=== PATIENT | female | born 1955 | race American Indian/Alaskan Native ===

== ENCOUNTER 2023-01-17 11:53 | Emergency (ER) | payer OTHER, SELFPAY ==
[2023-01-17 12:00] VITALS: BP 149/70; PULSE 83; RESP 18; TEMP 36.7; O2SAT 99
--- NOTE | 2023-01-17 12:19 | DI.RAD.S_ITS ---
PROCEDURE: XR CHEST 2V INDICATIONS: cough x 2 weeks, weight loss TECHNIQUE: 2 views of the chest were acquired. COMPARISON: None. FINDINGS: Surgical changes and devices: None. Lungs and pleura: Mild patchy airspace opacity at the left lung base. No pleural effusions or pneumothorax. Mediastinum: Mediastinal contours are normal. Heart size is normal. Bones and chest wall: No suspicious bony abnormalities. Soft tissues appear unremarkable. IMPRESSION: Left lung base pneumonia. Continued plain film surveillance is recommended to ensure resolution, and to exclude underlying or central malignancy. Dictated by: Monica Kowalski M.D. on 01/17/2023 at 13:40 Approved by: Monica Kowalski M.D. on 01/17/2023 at 13:41
[2023-01-17 13:18] LABS: Adenovirus Not Detected (Not Detect); Coronavirus 229E Not Detected (Not Detect); Coronavirus HKU1 Not Detected (Not Detect); Coronavirus NL 63 Not Detected (Not Detect); Coronavirus OC43 Not Detected (Not Detect); Human Metapneumovirus Not Detected (Not Detect); Human Rhinovirus/Enterovirus Detected (Not Detect); SARS- CoV-2 Not Detected (Not Detecte)
[2023-01-17 13:19] LABS: B. parapertussis Not Detected (Not Detecte); Bordetella pertussis Not Detected (Not Detecte); Chlamydophila pneumoniae Not Detected (Not Detect); Influenza A Not Detected (Not Detect); Influenza B Not Detected (Not Detect); Mycoplasma pneumoniae Not Detected (Not Detect); Parainfluenza Virus 1 Not Detected (Not Detect); Parainfluenza Virus 2 Not Detected (Not Detect); Parainfluenza Virus 3 Not Detected (Not Detect); Parainfluenza Virus 4 Not Detected (Not Detect); Respiratory Syncytial Virus Not Detected (Not Detect)
== END 2023-01-17 14:40 | disposition left against medical advice (07) ==
PROVIDERS: Emergency Medicine; Emergency Provider Student in an Organized Health Care Education/Training Program; PCP Physician Assistant
DX: B34.8 Other viral infections of unspecified site (principal); R05.9 Cough, unspecified; R63.4 Abnormal weight loss; Z20.822 Contact with and (suspected) exposure to COVID-19
CPT/HCPCS: 71046; 87633

== ENCOUNTER 2023-01-17 19:29 | Emergency (ER) | payer OTHER, SELFPAY ==
[2023-01-17] VITALS (10 sets, daily range): BP systolic 123–163; BP diastolic 66–87; PULSE 70–90; RESP 14–18; TEMP 36.8; O2SAT 93–97; BMI 20.3
--- NOTE | 2023-01-17 19:56 | DI.CT.S_ITS ---
PROCEDURE: CT CHEST ABD PEL W CON INDICATIONS: LLL pneumonia, weight loss, unable to swallow solids. TECHNIQUE: After the administration of intravenous contrast, axial sections acquired from the supraclavicular neck to the pubic symphysis. Coronal and sagittal reformats were performed. For radiation dose reduction, the following was used: automated exposure control, adjustment of mA and/or kV according to patient size. COMPARISON: None. FINDINGS: Image quality: Excellent. CHEST: Lower Neck: No lymphadenopathy by size criteria. Thyroid: Visualized thyroid demonstrates no discrete nodules. Axillae: No lymphadenopathy by size criteria. Chest Wall: Unremarkable. Lungs and Airways: There are severe centrilobular emphysematous changes. Patchy areas of peribronchial consolidation are demonstrated within the left lower lobe as well as milder consolidation in the inferior right middle lobe. The trachea and central airways are patent. Pleura: No pneumothorax or pleural effusions. Heart: Heart size is normal. No pericardial effusion. Thoracic Vessels: The aorta and pulmonary arteries are normal in size. Mediastinum and Shirin: No lymphadenopathy by size criteria. Esophagus: No wall thickening. No hiatal hernia. ABDOMEN: Liver: No mass lesion. Gallbladder: Surgically absent. Biliary ducts: There is mild intra and extrahepatic biliary ductal dilatation extending to the ampulla. The common bile duct measures up to 0.8 cm. No calcified common duct stone or discrete obstructing mass visualized. Pancreas: No discrete pancreatic mass. There is mild dilatation of the pancreatic duct adjacent to the ampulla measuring up to 0.4 cm. Spleen: Normal in size. Adrenal Glands: There is an indeterminate left adrenal nodule measuring up to 2.4 cm. Kidneys and Ureters: No hydronephrosis. Stomach and Bowel: Stomach, small bowel loops, and colon are normal in caliber and wall thickness. No pericecal inflammatory changes to suggest appendicitis. There is colonic diverticulosis without acute diverticulitis. Peritoneum: No abnormal intraperitoneal fluid. No free air. Ventral Wall: No hernia. Abdominal Nodes: No retroperitoneal or mesenteric adenopathy by size criteria. Vessels: Aorta and inferior vena cava are normal in size. The aorta is ectatic, measuring up to 2.7 cm. PELVIS: Pelvic Organs: Unremarkable. Bladder: Unremarkable. Pelvic Nodes: No enlarged lymph nodes. Miscellaneous: No inguinal hernias are seen. Bones: Visualized osseous structures demonstrate no suspicious focal lesions. IMPRESSION: 1. Patchy areas of peribronchial consolidation in the left lower lobe and inferior right middle lobe consistent with pneumonia. 2. Severe centrilobular emphysematous changes. 3. Intra and extrahepatic biliary ductal dilatation without a calcified common duct stone or discrete obstructing mass visualized. The findings may reflect sequelae of prior cholecystectomy, ampullary stenosis, or a nonvisualized obstructing lesion. Recommend correlation clinically including with laboratory values. Further evaluation may be obtained with MRCP if indicated. Dictated by: Rafiq Sebastian M.D. on 01/17/2023 at 21:41 Approved by: Rafiq Sebastian M.D. on 01/17/2023 at 21:49
[2023-01-17 20:14] LABS: Add Manual Diff / Slide Review NO; Basophils Absolute Auto 100 /uL (0-100); Basophils Percent Auto 0.9 % (0-2); Eosinophils Absolute Auto 100 /uL (0-450); Eosinophils Percent Auto 0.9 % (2-4); Hematocrit 40.7 % (36-46); Lymphocytes Absolute Auto 1400 /uL (1100-4500); Lymphocytes Percent Auto 9.4 % (25-40); Mean Corpuscular HGB Conc 34.4 % (30-36); Mean Corpuscular Hemoglobin 31.6 PG (26-34); Mean Corpuscular Volume 91.8 fL (80-100); Monocytes Absolute Auto 1200 /uL (0-900); Monocytes Percent Auto 7.8 % (3-14); Neutrophils Absolute Auto 12200 /uL (1500-7000); Platelet Count 405 X10^3/uL (150-400); Red Blood Cell Count 4.44 X10^6/uL (4.0-5.2); Red Cell Distribution Width 13.4 % (11.6-14.8)
[2023-01-17] MEDS: SODIUM CHLORIDE 0.9% 1,000 ML 1000 ML IV (20:15)
[2023-01-17 20:24] LABS: INR 1.3 (0.9-1.3); Prothrombin Time 14.4 SECONDS (10.1-12.7)
[2023-01-17 20:28] LABS: Alanine Aminotransferase 17 IU/L (<35); Albumin 4.2 g/dL (3.5-5.0); Alkaline Phosphatase 75 U/L (38-126); Aspartate Aminotransferase 26 IU/L (14-36); BUN Creatinine Ratio 24.2 (6-22); Bilirubin Total 1.2 mg/dL (0.2-1.3); Blood Urea Nitrogen 15 mg/dL (7-17); Calcium 9.3 mg/dL (8.4-10.2); Carbon Dioxide 29 mmol/L (22-32); Chloride 98 mmol/L (98-107); Estimated Glomerular Filt Rate > 60 mL/min (>60); Globulin 4.2 g/dL (1.7-4.1); Glucose 121 mg/dL (80-110); HEMOLYSIS 35 (0-50); Lipase 113 U/L (23-300); Potassium 3.6 mmol/L (3.4-5.1); Sodium 135 mmol/L (137-145); Total Protein 8.4 g/dL (6.3-8.2)
--- NOTE | 2023-01-17 20:29 | ED.GENADULT ---
HPI - General Adult General Chief complaint: Upper Respiratory Symptoms Stated complaint: left and is back again wants to know about labs Time Seen by Provider: 01/17/23 19:34 Source: patient Mode of arrival: Ambulatory History of Present Illness HPI narrative: 67-year-old female smoker with history of COPD presents with her in the chief complaint of a harsh sounding cough that is productive of yellow sputum for the past 2 weeks or so. She denies runny nose or sore throat. She is had no fever or chills. She feels a bit fatigued but denies any significant shortness of breath. She denies nausea, vomiting or diarrhea. She states that she is had difficulty swallowing for almost her entire life and has had multiple esophageal procedures to help make this easier. That being said she still can not swallow pills and requires any antibiotics to be written as a liquid. She denies any recent travel, exposure to other ill persons or hospitalizations in the past many months. She denies any unexplained weight loss or change in bowel habits. She denies any new medications. Related Data Previous Rx's Medication Instructions Recorded amoxicillin 250 mg-potassium 10 ml PO TID 10 days #300 mL 01/17/23 clavulanate 62.5 mg/5 mL oral suspension (Augmentin) azithromycin 200 mg/5 mL oral See Rx Instructions PO .COMPLEX 01/17/23 suspension #30 mL Allergies Allergy/AdvReac Type Severity Reaction Status Date / Time codeine Allergy Intermediate Vomiting Verified 01/17/23 12:19 Review of Systems Review of Systems Narrative: GENERAL: Denies chills, fatigue, malaise, fever, sweats. HEENT: Denies sinus pain, ear pain, sore throat, difficulty swallowing, dizziness. RESPIRATORY: See HPI CARDIOVASCULAR: Denies chest pain, palpitations, orthopnea, edema, GASTROINTESTINAL: Denies nausea, vomiting, abdominal pain, diarrhea, constipation, melena. : Denies dysuria, frequency, incontinence, hematuria, urinary retention. MUSCULOSKELETAL: denies weakness, joint pain, or bony pain SKIN: Denies rash, skin lesions, or other NEUROLOGIC: Denies weakness, headache, numbness, change in speech, confusion, seizures, incoordination. PSYCHIATRIC: No concerning psychosocial issues. 12 point review of systems is negative except for those stated above Patient History Social History (Reviewed 01/18/23 @ 05:04 by MARY JANE Guzman Smoking Status: Current every day smoker Smoking Status: Current every day smoker tobacco type: cigarettes alcohol intake frequency: 0-2 drinks per day Substance Use Type: does not use Exam Narrative Exam Narrative: GENERAL: [67] year old patient appears stated age. Well-developed patient, in mild distress. Thin HEAD: Atraumatic. Normocephalic. EYES: Pupils equal round and reactive. Extraocular motions intact. No scleral icterus. No injection or drainage. ENT: Nose without bleeding, purulent drainage. Throat without erythema, tonsillar hypertrophy or exudate. Airway patent. NECK: Trachea midline. Non tender CARDIOVASCULAR: Regular rate and rhythm without murmurs, gallops, or rubs. RESPIRATORY: Prolonged expiratory phase with decreased breath sounds throughout, crackles in left base, no use of accessory muscles, no hypoxemia, no obvious increased work of breathing GASTROINTESTINAL: Abdomen soft, non-tender, nondistended. EXTREMITIES: No edema or joint tenderness. BACK: Nontender without deformity or crepitance. No flank tenderness. NEURO: AOx3. SKIN: No rash or erythema of visible areas Initial Vital Signs Initial Vital Signs: Vital Signs Temperature 98.2 F 01/17/23 19:49 Pulse Rate 90 01/17/23 19:49 Respiratory Rate 16 01/17/23 19:49 Blood Pressure 144/70 H 01/17/23 19:49 Pulse Oximetry 95 01/17/23 19:49 Oxygen Delivery Method Room Air 01/17/23 19:49 Course Orders Ordered: ED Orders 01/17/23 20:43 Ictotest Urine Stat Urinalysis and Microscopic Stat Urine Culture Stat Discontinued Medications Sodium Chloride (Normal Saline 0.9%) 1,000 mls @ 1,000 mls/hr IV BOLUS ONE Stop: 01/17/23 20:56 Last Infusion: 01/17/23 21:15 Dose: 0 mls/hr Documented By: Admin: 01/17/23 20:15 Dose: 1,000 mls/hr Documented By: MALLORIE Ondansetron HCl (Ondansetron 4 Mg Odt) 4 mg PO NOW PRN PRN Reason: Nausea And Vomiting Ondansetron HCl (Ondansetron 4 Mg/2 Ml Inj) 4 mg IV NOW PRN PRN Reason: Nausea And Vomiting Vital Signs Vital signs: Vital Signs - 8 hr 01/17/23 21:30 01/17/23 21:30 01/17/23 22:00 Pulse Rate 87 Respiratory Rate 16 Blood Pressure 138/79 124/67 Pulse Oximetry 97 01/17/23 22:00 01/17/23 22:30 01/17/23 22:30 Pulse Rate 77 74 Respiratory Rate 16 Blood Pressure 134/70 Pulse Oximetry 95 94 01/17/23 23:00 01/17/23 23:00 01/17/23 23:30 Pulse Rate 71 Respiratory Rate 18 Blood Pressure 123/66 126/71 Pulse Oximetry 93 01/17/23 23:30 01/17/23 23:36 01/17/23 23:36 Pulse Rate 70 84 Respiratory Rate 14 Blood Pressure 163/87 H Pulse Oximetry 97 96 Medical Decision Making Lab Data 01/17/23 20:05 01/17/23 20:05 Labs: Lab Results 01/17/23 01/17/23 01/17/23 Range/Units 20:05 20:05 20:05 WBC 15.0 H (4.5-11.0) X10^3/uL RBC 4.44 (4.0-5.2) X10^6/uL Hgb 14.0 (12.0-16.0) g/dL Hct 40.7 (36-46) % MCV 91.8 (80-100) fL MCH 31.6 (26-34) PG MCHC 34.4 (30-36) % RDW 13.4 (11.6-14.8) % Plt Count 405 H (150-400) X10^3/uL Neut % (Auto) 81.0 H (50-75) % Lymph % (Auto) 9.4 L (25-40) % [place] % (Auto) 7.8 (3-14) % Eos % (Auto) 0.9 L (2-4) % Baso % (Auto) 0.9 (0-2) % Neut # (Auto) 81082 H (4915-9253) /uL Lymph # (Auto) 1400 (1782-1434) /uL [place] # (Auto) 1200 H (0-900) /uL Eos # (Auto) 100 (0-450) /uL Baso # (Auto) 100 (0-100) /uL PT 14.4 H (10.1-12.7) SECONDS INR 1.3 (0.9-1.3) Sodium 135 L (137-145) mmol/L Potassium 3.6 (3.4-5.1) mmol/L Chloride 98 (98-107) mmol/L Carbon Dioxide 29 (22-32) mmol/L BUN 15 (7-17) mg/dL Creatinine 0.62 (0.52-1.04) mg/dL Estimated GFR > 60 (>60) mL/min BUN/Creatinine Ratio 24.2 H (6-22) Glucose 121 H (80-110) mg/dL Lactate (0.7-2.1) mmol/L Calcium 9.3 (8.4-10.2) mg/dL Total Bilirubin 1.2 (0.2-1.3) mg/dL AST 26 (14-36) IU/L ALT 17 (<35) IU/L Alkaline Phosphatase 75 (38-126) U/L Total Creatine Kinase (30-135) U/L Troponin I (0.01-0.034) ng/mL Total Protein 8.4 H (6.3-8.2) g/dL Albumin 4.2 (3.5-5.0) g/dL Globulin 4.2 H (1.7-4.1) g/dL Albumin/Globulin Ratio 1.0 (1.0-2.8) Lipase 113 (23-300) U/L Procalcitonin (<0.5) ng/mL Urine Color Urine Appearance Urine pH (4.5-8.0) Ur Specific [place] (1.000-1.035) Urine Protein (Negative) Urine Glucose (UA) (Negative) g/dL Urine Ketones (NEGATIVE) Urine Occult Blood (Negative) Urine Nitrate (Negative) Urine Bilirubin (NEGATIVE) Ur Bilirubin Confirm (Negative) Urine Urobilinogen (0.2) E.U./dL Ur Leukocyte Esterase (NEGATIVE) Urine RBC (0-5/HPF) Urine WBC (0-5/HPF) Ur Squamous Epith Cells (0-5/HPF) Amorphous Sediment Urine Bacteria (None) Ur Culture Indicated? 01/17/23 01/17/23 01/17/23 Range/Units 20:05 20:05 20:43 WBC (4.5-11.0) X10^3/uL RBC (4.0-5.2) X10^6/uL Hgb (12.0-16.0) g/dL Hct (36-46) % MCV (80-100) fL MCH (26-34) PG MCHC (30-36) % RDW (11.6-14.8) % Plt Count (150-400) X10^3/uL Neut % (Auto) (50-75) % Lymph % (Auto) (25-40) % [place] % (Auto) (3-14) % Eos % (Auto) (2-4) % Baso % (Auto) (0-2) % Neut # (Auto) (9463-0685) /uL Lymph # (Auto) (9690-9962) /uL [place] # (Auto) (0-900) /uL Eos # (Auto) (0-450) /uL Baso # (Auto) (0-100) /uL PT (10.1-12.7) SECONDS INR (0.9-1.3) Sodium (137-145) mmol/L Potassium (3.4-5.1) mmol/L Chloride (98-107) mmol/L Carbon Dioxide (22-32) mmol/L BUN (7-17) mg/dL Creatinine (0.52-1.04) mg/dL Estimated GFR (>60) mL/min BUN/Creatinine Ratio (6-22) Glucose (80-110) mg/dL Lactate 1.6 (0.7-2.1) mmol/L Calcium (8.4-10.2) mg/dL Total Bilirubin (0.2-1.3) mg/dL AST (14-36) IU/L ALT (<35) IU/L Alkaline Phosphatase (38-126) U/L Total Creatine Kinase 51 (30-135) U/L Troponin I < 0.012 (0.01-0.034) ng/mL Total Protein (6.3-8.2) g/dL Albumin (3.5-5.0) g/dL Globulin (1.7-4.1) g/dL Albumin/Globulin Ratio (1.0-2.8) Lipase (23-300) U/L Procalcitonin 0.08 (<0.5) ng/mL Urine Color Yellow Urine Appearance Clear Urine pH 5.0 (4.5-8.0) Ur Specific [place] 1.025 (1.000-1.035) Urine Protein 1+ H (Negative) Urine Glucose (UA) Negative (Negative) g/dL Urine Ketones Trace H (NEGATIVE) Urine Occult Blood 3+ H (Negative) Urine Nitrate Negative (Negative) Urine Bilirubin 1+ H (NEGATIVE) Ur Bilirubin Confirm Negative (Negative) Urine Urobilinogen 2.0 H (0.2) E.U./dL Ur Leukocyte Esterase 3+ H (NEGATIVE) Urine RBC 5-10/hpf H (0-5/HPF) Urine WBC 10-30/hpf H (0-5/HPF) Ur Squamous Epith Cells 1-5 /hpf (0-5/HPF) Amorphous Sediment 2+ Urine Bacteria Few (2-10) H (None) Ur Culture Indicated? Specimen cultured Urine Dip Bedside Urine Glucose Negative Bedside Urine Bilirubin - Negative Bedside Urine Ketone - Negative Urine Specific [place] 1.025 Bedside Urine Occult Blood +++ Bedside Urine pH 6.0 Bedside Urine Protein + 30 Bedside Urine Urobilinogen - Negative Bedside Urine Nitrite - Negative Bedside Urine Leukocytes +++ 500 Esterase Point of care testing: Urine Dip Bedside Urine Glucose Negative Bedside Urine Bilirubin - Negative Bedside Urine Ketone - Negative Urine Specific [place] 1.025 Bedside Urine Occult Blood +++ Bedside Urine pH 6.0 Bedside Urine Protein + 30 Bedside Urine Urobilinogen - Negative Bedside Urine Nitrite - Negative Bedside Urine Leukocytes +++ 500 Esterase MDM Narrative Medical decision making narrative: [67] year old patient presents with cough and sputum production Multiple etiologies for patient's symptoms considered including, but not limited to: [Pneumonia versus COPD exacerbation versus viral upper respiratory infection such as flu versus pneumonia versus lung mass versus other] Prior Charts reviewed in our EMR Primary Historian: patient Labs reviewed and interpreted by myself: Respiratory panel positive for enterovirus, slight leukocytosis with left shift, electrolytes and renal function within normal, procalcitonin minimally elevated Imaging reviewed: Left lower lobe pneumonia on chest x-ray, CT of chest notes patchy areas of peribronchial consolidation and left lower lobe and inferior right middle lobe pneumonia Patient's symptoms improved over duration of stay with above-stated therapies. She shows no signs of sepsis, no significant respiratory distress. Patient appropriate for discharge, given comorbidities is most appropriately treated with a combination of Augmentin and a macrolide. As noted above she can not tolerate pills, therefore prescriptions for the liquid preparation are chosen Findings and discharge diagnosis discussed with patient/family followed by verbalization of understanding Return precautions discussed with patient/family whom verbalize understanding of diagnosis and plan Discharge Plan Departure Patient Disposition: Home Clinical Impression: Pneumonia, Disease due to enterovirus Instructions: DI for Pneumonia -- Adult Activity Restrictions/Additional Instructions: *You have been diagnosed with [cough due to left lower lobe pneumonia] *What to do: *Please continue to take your regular medications as directed. [x ] New medication prescriptions sent to your pharmacy: [ [facility]] [ ] New medication written as a paper prescription [ ] No new medications given *Please follow up with your primary care provider in 2-3 days, call for an appointment. Let them know you were seen in the Emergency Department and that we ask that you be seen in follow up. We will electronically transmit a record of today's note if your PCP is in our system *Return to Emergency Department if you should have any new, worsening or concerning symptoms, such as [fever greater than 101 F, shaking chills, worsening pain, persistent vomiting or other bothersome symptoms] Prescriptions: New azithromycin 200 mg/5 mL suspension for reconstitution See Rx Instructions .ROUTE .COMPLEX Qty: 30 0RF Rx Instructions: take 12.5 mL (500 mg) by mouth today (day 1), then 6.25 mL (250 mg) daily for 4 days (days 2-5) amoxicillin-pot clavulanate [Augmentin] 250-62.5 mg/5 mL suspension for reconstitution 10 ml PO TID 10 Days Qty: 300 0RF Referrals: Carole Graves PA-C [Primary Care Provider] - Stand Alone Forms: Patient Portal/API
[2023-01-17 20:40] LABS: Creatine Kinase 51 U/L (30-135); Lactate (Lactic Acid) 1.6 mmol/L (0.7-2.1)
[2023-01-17 20:52] LABS: Troponin I < 0.012 ng/mL (0.01-0.034)
[2023-01-17 20:56] LABS: Bilirubin Urine UA 1+ (NEGATIVE); Color Urine UA YELLOW; Glucose Urine UA NEGATIVE (Negative); Ketones Urine UA TRACE (NEGATIVE); Leukocyte Esterase Urine UA 3+ (NEGATIVE); Nitrite Urine UA NEGATIVE (Negative); Occult Blood Urine UA 3+ (Negative); Protein Urine UA 1+ (Negative); Specific Gravity Urine UA 1.025 (1.000-1.035)
[2023-01-17 20:57] LABS: Procalcitonin 0.08 ng/mL (<0.5)
[2023-01-17 21:41] LABS: Appearance Urine UA Clear
[2023-01-17 21:42] LABS: Ictotest Urine Negative (Negative)
[2023-01-17 22:00] LABS: Amorphous Sediment Urine 2+; Bacteria Urine Few (2-10); Culture Indicated Urine Specimen Cultured; RBC Urine 5-10/HPF (0-5/HPF); Squamous Epithelial Cell Urine 1-5 /HPF (0-5/HPF); WBC Urine 10-30/HPF (0-5/HPF)
== END 2023-01-18 00:02 | disposition home or self-care (01) ==
PROVIDERS: Emergency Provider Emergency Medicine; PCP Physician Assistant
DX: J18.9 Pneumonia, unspecified organism (principal); B34.8 Other viral infections of unspecified site; R05.9 Cough, unspecified; R63.4 Abnormal weight loss; Z20.822 Contact with and (suspected) exposure to COVID-19
CPT/HCPCS: 36415; 71046; 71260; 74177; 80053; 81001; 81003; 82550; 83605; 83690; 84145; 84484; 85025; 85610; 87086; 87633; 99283; 99284; Q9967

== ENCOUNTER → 2023-02-22 10:34 | Outpatient (CLI) | payer OTHER, SELFPAY ==
--- NOTE | 2023-02-22 | DI.RAD.S_ITS ---
PROCEDURE: XR CHEST 2V INDICATIONS: Personal history of pneumonia (recurrent) TECHNIQUE: 2 views of the chest were acquired. COMPARISON: [facility], , XR CHEST 2V, 01/17/2023, 12:22. FINDINGS: Surgical changes and devices: None. Lungs and pleura: Blunting the left costophrenic angle is similar to the prior exam. There is hyperinflation and chronic interstitial changes without focal infiltrate, pleural effusion or pneumothorax. Mediastinum: Mediastinal contours are normal. Heart size is normal. Bones and chest wall: Generalized decreased osseous mineralization noted. IMPRESSION: Small left pleural effusion with atelectasis and or infiltrate, similar to the prior Approved by: Neno Wyatt M.D. on 02/22/2023 at 18:43
--- NOTE | 2023-02-22 | DI.RAD.S_ITS ---
PROCEDURE: XR LUMBAR SPINE 2-3V INDICATIONS: Pain TECHNIQUE: 3 views of the lumbar spine were acquired. COMPARISON: [facility], CT, CT CHEST ABD PEL W CON, 01/17/2023, 20:47. FINDINGS: Bones: Generalized decreased osseous mineralization noted. Hypertrophic facet joints noted in the lower lumbar spine. Grade 1 anterior spondylolisthesis L5-S1. Atherosclerotic aortic vascular calcification Soft tissues: Overlying bowel gas pattern is normal. No suspicious soft tissue calcifications. IMPRESSION: Degenerative grade 1 anterior spondylolisthesis L5-S1 Osteopenia Approved by: Neno Wyatt M.D. on 02/22/2023 at 18:41
== END ==
PROVIDERS: PCP Physician Assistant; Referring Provider Physician Assistant; Visit Provider Physician Assistant
DX: M54.9 Dorsalgia, unspecified (principal); Z87.01 Personal history of pneumonia (recurrent); M43.17 Spondylolisthesis, lumbosacral region; M85.88 Other specified disorders of bone density and structure, other site; J90 Pleural effusion, not elsewhere classified; J98.11 Atelectasis
CPT/HCPCS: 71046; 72100

== ENCOUNTER 2023-06-02 13:35 | Emergency (ER) | payer OTHER, SELFPAY ==
[2023-06-02 13:41] VITALS: BP 142/78; PULSE 71; RESP 20; TEMP 36.8; O2SAT 100; BMI 18.6
--- NOTE | 2023-06-02 13:50 | DI.RAD.S_ITS ---
PROCEDURE: XR RIBS LT MIN 3V W CXR1V INDICATIONS: pain after heimlich maneuver yesterday TECHNIQUE: 2 views of the ribs were acquired, along with a single view chest. COMPARISON: None. FINDINGS: Surgical changes and devices: None. Bones and chest wall: No fractures or dislocations. No suspicious bony lesions. Overlying soft tissues appear unremarkable. Lungs and pleura: No pleural effusions or pneumothorax. Lungs appear clear. Mediastinum: Mediastinal contours appear normal. Heart size is normal. IMPRESSION: No displaced rib fracture or acute pulmonary process. Dictated by: Hector Ortiz M.D. on 06/02/2023 at 14:38 Approved by: Hector Ortiz M.D. on 06/02/2023 at 14:47
--- NOTE | 2023-06-02 14:57 | ED.CHESTPAIN ---
HPI - Chest Pain <Ly Bonilla PA-C - Last Filed: 06/02/23 18:24> General Chief Complaint: Chest Pain Stated Complaint: Choking last night Time Seen by Provider: 06/02/23 14:57 Source: patient Mode of arrival: Ambulatory Limitations: no limitations History of Present Illness HPI narrative: Patient is a 67-year-old female with a long history of esophageal stricture who was eating a piece of chocolate last night and it seemed to get stuck in her throat. She receive the Heimlich maneuver which relieved the obstruction but has caused her significant left-sided rib pain. She is quite frail and is concerned that she may have a fracture. She denies any difficulty breathing or shortness of breath. Related Data Previous Rx's Medication Instructions Recorded azithromycin 200 mg/5 mL oral See Rx Instructions PO .COMPLEX 01/17/23 suspension #30 mL Allergies Allergy/AdvReac Type Severity Reaction Status Date / Time codeine Allergy Intermediate Vomiting Verified 01/17/23 12:19 Review of Systems <Ly Bonilla PA-C - Last Filed: 06/02/23 18:24> Review of Systems ROS Unobtainable: All systems reviewed & are unremarkable except as noted in HPI and below Patient History <Ly Bonilla PA-C - Last Filed: 06/02/23 18:24> Social History Smoking Status: Current every day smoker Smoking Status: Current every day smoker tobacco type: cigarettes alcohol intake frequency: 0-2 drinks per day Substance Use Type: does not use Exam <Ly Bonilla PA-C - Last Filed: 06/02/23 18:24> Narrative Exam Narrative: GENERAL: 67 year old patient appears stated age. Frail, in no acute distress. NEURO: AOx3. HEAD: Atraumatic. Normocephalic. EYES: Pupils equal round and reactive. Extraocular motions intact. No scleral icterus. No injection or drainage. ENT: Nose without bleeding or purulent drainage. Airway patent. NECK: Trachea midline. Non tender CARDIOVASCULAR: Regular rate and rhythm without murmurs, gallops, or rubs. RESPIRATORY: Clear to auscultation. Breath sounds equal bilaterally. No wheezes, rales, or rhonchi. Tender to light palpation over the left lower lateral and posterior ribs. EXTREMITIES: No edema or joint tenderness. SKIN: No rash or erythema of visible areas Initial Vital Signs Initial Vital Signs: Vital Signs Temperature 98.2 F 06/02/23 13:41 Pulse Rate 71 06/02/23 13:41 Respiratory Rate 20 06/02/23 13:41 Blood Pressure 142/78 H 06/02/23 13:41 Pulse Oximetry 100 06/02/23 13:41 Oxygen Delivery Method Room Air 06/02/23 13:41 <Anette More DO - Last Filed: 06/05/23 02:04> Initial Vital Signs Initial Vital Signs: Vital Signs Temperature 98.2 F 06/02/23 13:41 Pulse Rate 71 06/02/23 13:41 Respiratory Rate 20 06/02/23 13:41 Blood Pressure 142/78 H 06/02/23 13:41 Pulse Oximetry 100 06/02/23 13:41 Oxygen Delivery Method Room Air 06/02/23 13:41 Course <Ly Bonilla PA-C - Last Filed: 06/02/23 18:24> Orders Ordered: ED Orders 06/02/23 13:50 XR ribs LT min 3V w CXR1V Stat Vital Signs Vital signs: Vital Signs - 8 hr 06/02/23 13:41 06/02/23 15:15 Temperature 98.2 F Pulse Rate 71 66 Respiratory Rate 20 14 Blood Pressure 142/78 H 140/80 Pulse Oximetry 100 100 Oxygen Delivery Method Room Air Room Air <DO Perez Hilton Last Filed: 06/05/23 02:04> Orders Ordered: ED Orders 06/02/23 13:50 XR ribs LT min 3V w CXR1V Stat Vital Signs Vital signs: Vital Signs - 8 hr 06/02/23 13:41 06/02/23 15:15 Temperature 98.2 F Pulse Rate 71 66 Respiratory Rate 20 14 Blood Pressure 142/78 H 140/80 Pulse Oximetry 100 100 Oxygen Delivery Method Room Air Room Air MDM - Chest Pain <TEO Cabrera Last Filed: 06/02/23 18:24> Imaging Data Chest x-ray: Radiologist's Impression: PROCEDURE: XR RIBS LT MIN 3V W CXR1V INDICATIONS: pain after heimlich maneuver yesterday TECHNIQUE: 2 views of the ribs were acquired, along with a single view chest. COMPARISON: None. FINDINGS: Surgical changes and devices: None. Bones and chest wall: No fractures or dislocations. No suspicious bony lesions. Overlying soft tissues appear unremarkable. Lungs and pleura: No pleural effusions or pneumothorax. Lungs appear clear. Mediastinum: Mediastinal contours appear normal. Heart size is normal. IMPRESSION: No displaced rib fracture or acute pulmonary process. Dictated by: Hector Ortiz M.D. on 06/02/2023 at 14:38 Approved by: Hector Ortiz M.D. on 06/02/2023 at 14:47 [facility] Narrative Medical decision making narrative: Multiple etiologies for patient's symptoms considered including, but not limited to: Rib fracture, pneumothorax, rib contusion, soft tissue injury X-ray is reassuring and does not show any displaced rib fractures or pneumothorax. Patient is very happy to hear this. Discussed that rib contusions can still cause quite a bit of pain and she is at risk for atelectasis if she does not intentionally take deep breaths to keep her lungs wide open. She understands this risk and the necessary interventions. She can use Tylenol or an [id number] lidocaine patch for pain. She understands return precautions. Patient's symptoms improved over duration of stay with above-stated therapies. Findings and discharge diagnosis discussed with patient/family followed by verbalization of understanding Return precautions discussed with patient/family whom verbalize understanding of diagnosis and plan Discharge Plan Departure Patient Disposition: Home Clinical Impression: Acute chest wall pain Instructions: DI for Atypical Chest Pain Activity Restrictions/Additional Instructions: *You have been diagnosed with chest wall pain. There is no evidence of fracture or collapsed lung on the x-ray. Bruising to your ribs can be very uncomfortable and take weeks to improve. I would advise Tylenol, ice/heat and rest. Make sure taking many deep breaths throughout the day to prevent pneumonia. If you develop any worsening pain or new symptoms, please return to the ER for reassessment. *What to do: *Please continue to take your regular medications as directed. [ ] New medication prescriptions sent to your pharmacy: [ ] [ ] New medication written as a paper prescription [x] No new medications given *Please follow up with your primary care provider in 2-3 days, call for an appointment. Let them know you were seen in the Emergency Department and that we ask that you be seen in follow up. We will electronically transmit a record of today's note if your PCP is in our system *If you do not have a primary care provider please contact the [facility] Resource line at [phone]. They will ask some questions about your medical history and help get you set up with a doctor in the community. *Return to Emergency Department if you should have any new, worsening or concerning symptoms, such as [fever greater than 101 F, shaking chills, worsening pain, persistent vomiting or other concerning symptoms]. Prescriptions: No Action azithromycin 200 mg/5 mL suspension for reconstitution See Rx Instructions .ROUTE .COMPLEX Qty: 30 0RF Rx Instructions: take 12.5 mL (500 mg) by mouth today (day 1), then 6.25 mL (250 mg) daily for 4 days (days 2-5) Referrals: Carole Graves PA-C [Primary Care Provider] - Stand Alone Forms: Patient Portal/API ED Sign-out <Anette More DO - Last Filed: 06/05/23 02:04> Cosign ED Attending Josr Attestation: I was available for consultation.
[2023-06-02 15:15] VITALS: BP 140/80; PULSE 66; RESP 14; O2SAT 100
== END 2023-06-02 15:16 | disposition home or self-care (01) ==
PROVIDERS: Emergency Provider Physician Assistant; PCP Physician Assistant
DX: R07.89 Other chest pain (principal)
CPT/HCPCS: 71101; 99283